=== PATIENT | male | born 1990 | race Caucasian/White ===

== ENCOUNTER 2017-11-21 04:34 | Emergency (ER) | payer SELFPAY ==
[~2017-11-21] VITALS: Ht 170.2 cm; Wt 75.0 kg
[2017-11-21 04:49] VITALS: BP 130/74
== END 2017-11-21 05:01 | disposition short-term general hospital (02) ==
LOC: ED 04:48
DX: S36.438A Laceration of other part of small intestine, initial encounter (principal); W26.0XXA Contact with knife, initial encounter; Y93.89 Activity, other specified; Y92.89 Other specified places as the place of occurrence of the external cause; Y99.8 Other external cause status
CPT/HCPCS: 99285